=== PATIENT | female | born 1960 | race Caucasian/White ===

== ENCOUNTER 2017-11-22 11:00 | Outpatient (RCR) | payer BC, SELFPAY ==
--- NOTE | 2017-10-11 09:44 | HP.OTEVAL_ITS ---
Patient's Visit Information FREDERICK YORK is a 57 year old F, referred to Occupational Therapy by Frank Mo, with a diagnosis of CTS, Lymphedema left UE malingant neoplasm of left breast. Date of Evaluation: 10/11/17 Occupational Therapist: Rosi Briggs, ARIELLAR/Anna, CHT - Subjective Subjective: Pt states about a year ago and she noticed a increase in swelling in her left UE- pt states about 7 weeks ago she had CTR performed on left UE that has Lymphedema- pt states she her cancer has mets to her liver and her bones-pt states her shoulder felt tight initially and then her UE . pt states in June she had limited ability in her left UE- pt was inital dx in 2011- pt has compression garments and a home compression pump but she is not using them at this time. pt states she has chemo tomorrow- - Pain left UE 7 Pain Intensity Range: 3, 7 - ROM Shoulder: right WNL left limited shoulder flex to 90 Elbow: right WNL left limited active WNL passive Forearm: right WNL left no active supination Wrist: right WNL left no active wrist motion passive WNL - Strength Wrist: Right 50# left unable - Lymphedema (Circumferential Measure) MCP: right 19cm left 22cm Wrist: right 16 left 20cm Lower forearm: right 17cm left 21cm Largest forearm: right 22cm left 28cm Elbow: right 24cm left 27cm Largest humerus: right 24cm left 30 cm Axcillary: right 30cm left 33cm - Sensation Sensation Comments: with light touch of radial/and Median N distribution pt was unable to feel light touch-. pt was able to feel light touch through ulnar N distribution - Goals Demonstrate a 20% reduction in edema by d/c: Yes Demonstrate adequate knowledge of self-massage by 2nd week: Yes Demonstrate adequate knowledge skin care/prec by 2nd week: Yes Demonstrate adequate knowledge therapeutic exercises by d/c: Yes Select approp compression garment w/donning/care/wear by d/c: Yes Voice need to replace compression garment every 4-6mo by dc: Yes Goal: Patient will demonstrate ROM WFL by discharge.: Yes - Rehabilitation General Assessment: pt demo with involvment of radial and median nerve of left UE- pt demo with stage II lymphedeam. pt is limited with active left UE ROM of shoulder elbow flex/ex , wrist and digits- pt would benefit from skilled OT services to address lymphedema, ROM and strength- pt at this time needs assist from her spouse for BADLs and IADLS. Due to travel to clinic pt is willing to attend therapy 1x week for 4 weeks to address the above deficits. Rehabilitation Potential: Questionable - Anticipated Interventions Anticipated Interventions: A/AAROM/PROM, Strengthening, Modalities, Orthoses, Manual Lymph Drainage, Education re Life-long lymphedema Management, Education re Skin Care and Precautions, Education re Self Massage Techniques, Education re Correct Donning Tech,Care&Wearing Sched Comp Garments, Caregiver Training, Home Program - Visit Plan Frequency: 1x/Week Duration: 4 Weeks TEXT: Thank you for the opportunity to evaluate your patient. For Medicare and Medicare HMO plans, please review the plan of care and approve it. It will need to be FAXED BACK to us at [phone] for Medicare purposes. Please let me know if there are questions or concerns regarding this plan of care. Physician Signature: Date:
--- NOTE | 2017-10-12 07:53 | HP.OTEVAL_ITS ---
Patient's Visit Information FREDERICK YORK is a 57 year old F, referred to Occupational Therapy by Frank Mo, with a diagnosis of CTS, Lymphedema left UE malingant neoplasm of left breast. Date of Evaluation: 10/11/17 Occupational Therapist: Rosi Briggs, ARIELLAR/L, CHT - Subjective Subjective: Pt states about a year ago and she noticed a increase in swelling in her left UE- pt states about 7 weeks ago she had CTR performed on left UE that has Lymphedema- pt states she her cancer has mets to her liver and her bones-pt states her shoulder felt tight initially and then her UE . pt states in June she had limited ability in her left UE- pt was inital dx in 2011- pt has compression garments and a home compression pump but she is not using them at this time. pt states she has chemo tomorrow- - Pain left UE 7 Pain Intensity Range: 3, 7 - ROM Shoulder: right WNL left limited shoulder flex to 90 Elbow: right WNL left limited active WNL passive Forearm: right WNL left no active supination Wrist: right WNL left no active wrist motion passive WNL - Strength Wrist: Right 50# left unable - Lymphedema (Circumferential Measure) MCP: right 19cm left 22cm Wrist: right 16 left 20cm Lower forearm: right 17cm left 21cm Largest forearm: right 22cm left 28cm Elbow: right 24cm left 27cm Largest humerus: right 24cm left 30 cm Axcillary: right 30cm left 33cm - Sensation Sensation Comments: with light touch of radial/and Median N distribution pt was unable to feel light touch-. pt was able to feel light touch through ulnar N distribution - Goals Demonstrate a 20% reduction in edema by d/c: Yes Demonstrate adequate knowledge of self-massage by 2nd week: Yes Demonstrate adequate knowledge skin care/prec by 2nd week: Yes Demonstrate adequate knowledge therapeutic exercises by d/c: Yes Select approp compression garment w/donning/care/wear by d/c: Yes Voice need to replace compression garment every 4-6mo by dc: Yes Goal: Patient will demonstrate ROM WFL by discharge.: Yes Goal:: pt will demo MMT 4/5 of left UE to increase pts ind. with all BADLS and IADLs by d/c. pt will demo a left gas furnace installer of 30# or greater to increase pts ind with all BADLs and IADLS. Goal:: pt will demo left UE ROM equal to right by D/C to increase pts ind with BADLS and IADLS Goal:: pt will report no pain greater than 1/10 with use of left UE for BADLS by d/c - Rehabilitation General Assessment: pt demo with involvment of radial and median nerve of left UE- pt demo with stage II lymphedeam. pt is limited with active left UE ROM of shoulder elbow flex/ex , wrist and digits- pt would benefit from skilled OT services to address lymphedema, ROM and strength- pt at this time needs assist from her spouse for BADLs and IADLS. Due to travel to clinic pt is willing to attend therapy 1x week for 4 weeks to address the above deficits. Rehabilitation Potential: Questionable - Anticipated Interventions Anticipated Interventions: A/AAROM/PROM, Strengthening, Modalities, Orthoses, Manual Lymph Drainage, Education re Life-long lymphedema Management, Education re Skin Care and Precautions, Education re Self Massage Techniques, Education re Correct Donning Tech,Care&Wearing Sched Comp Garments, Caregiver Training, Home Program - Visit Plan Frequency: 1x/Week Duration: 4 Weeks TEXT: Thank you for the opportunity to evaluate your patient. For Medicare and Medicare HMO plans, please review the plan of care and approve it. It will need to be FAXED BACK to us at [phone] for Medicare purposes. Please let me know if there are questions or concerns regarding this plan of care. Physician Signature: Date:
--- NOTE | 2018-02-19 10:37 | HP.OT.NRP ---
HP - Discharge Summary - Patient Information FREDERICK YORK was seen in my office for initial evaluation on 10/11/17. The following Plan of Care was established for this patient: Initial Frequency: 1x/Week Initial Duration: 4 Weeks Plan: pt to return next week with new compression sleeve - Anticipated Interventions Anticipated Interventions: A/AAROM/PROM, Strengthening, Modalities, Orthoses, Manual Lymph Drainage, Education re Life-long lymphedema Management, Education re Skin Care and Precautions, Education re Self Massage Techniques, Education re Correct Donning Tech,Care&Wearing Sched Comp Garments, Caregiver Training, Home Program This patient was last seen in our office 11/22/17. Pertinent comments regarding their Occupational therapy will appear below: pt was seen in OT for 6 visits. she was seen for lymphedema of left UE. Pt demo with a decrease in functional ROM/strength and edema. pt was last seen on 11/22/17 and was to return with new compression garment. pt has not done so at this time and is D/C due to non attendance. At this point I will be discontinuing this patient from occupational therapy. I would be happy to see this patient again in the future if found appropriate by the physician. Thank you! Rosi Briggs, OTR/L, CHT
== END 2017-11-22 19:00 | disposition home or self-care (01) ==
LOC: OT 11:00
PROVIDERS: Family Provider Family Medicine; PCP Family Medicine; Visit Provider Orthopaedic Surgery
DX: G56.02 Carpal tunnel syndrome, left upper limb (principal); I89.0 Lymphedema, not elsewhere classified; C50.912 Malignant neoplasm of unspecified site of left female breast
CPT/HCPCS: 97110; 97140; 97166